=== PATIENT | female | born 1965 | race Caucasian/White ===

== ENCOUNTER 2020-11-25 10:50 | Emergency (ER) | payer OTHER, SELFPAY ==
--- NOTE | ~2020-11-25 | XR_ITS ---
EXAMINATION: XR knee RT min 4V DATE: 11/25/2020 11:18 INDICATION: Right knee injury. TECHNIQUE: 4 views of right knee were obtained. COMPARISON: None. FINDINGS: Bone alignment is normal. No acute fracture. There is mild tricompartmental osteoarthritis. There is chondrocalcinosis of the menisci. There are surgical changes in distal femur and proximal t ibia from anterior cruciate ligament reconstruction. There is a large knee joint effusion. IMPRESSION: 1. Mild right knee osteoarthritis. 2. Large right knee joint effusion. Reviewed, dictated and finalized at location A.
--- NOTE | 2020-11-25 11:00 | ED.LOWEXIN ---
HPI - Extremity Injury (Lower) General Chief Complaint: Extremity Injury, Lower Stated Complaint: right knee pain Time Seen by Provider: 11/25/20 11:03 Source: patient and family Mode of arrival: ambulatory Limitations: no limitations History of Present Illness HPI Narrative: 55-year-old woman comes in today complaining of right knee pain and swelling and limited weight-bearing that started last night after she twisted her knee getting out of a van. She states that the swelling started immediately. She denies any numbness or tingling. She has had multiple ligament surgeries on that knee. complaint: knee injury Injury: Right: knee Type of Injury: other ( Twisted) Place: street/outdoors Severity: severe Relieving factors: nothing Exacerbating factors: weight bearing, movement and palpation Associated symptoms: snap/pop sensation, swelling and able to partially bear weight Other symptoms: none Treatments prior to arrival: cold therapy and NSAIDS Related Data Allergies Allergy/AdvReac Type Severity Reaction Status Date / Time No Known Allergies Allergy Mild Verified 11/05/20 11:06 Review of Systems Review of Systems: All systems reviewed & are unremarkable except as noted in HPI and below Constitutional: Constitutional: Denies chills and Denies fever(s) Respiratory: Respiratory: Denies cough and Denies dyspnea Gastrointestinal: Gastrointestinal: Denies nausea and Denies vomiting Musculoskeletal: Musculoskeletal: Reports as per HPI, Denies back pain, Reports arthralgias and Reports joint swelling Integumentary/Breasts: Skin/Breast: Denies pruritus and Denies rash Neurologic: Denies vertigo, Denies dizziness, Denies syncope, Denies focal weakness and Denies numbness PMF Past Medical History Medical History (Updated 11/25/20 @ 11:34 by Marco A Cohen MD) Cigarette smoker two packs a day or less Depression DEVI (generalized anxiety disorder) GERD (gastroesophageal reflux disease) PTSD (post-traumatic stress disorder) Surgical History Surgical History History of back surgery History of hysterectomy History of knee surgery Social History Social History Smoking packs per day: 1 Smoking cigarettes per day: 20.0 Years smoked: 40 Smoking pack-years: 40.00 Smoking status: Current every day smoker Alcohol intake: current Substance use: never Additional living arrangements comments: . Lives with . Lost her daughter to drug overdose. 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 Exam Const: General: alert Orientation/consciousness: patient oriented x3 Other: moderate acute distress. Resp: Effort & Inspection: normal respiratory effort Auscultation: wheezes ( Bilateral late expiratory wheezes at the bases.) Cardio: Rate: regular rate Rhythm: regular rhythm Heart sounds: no murmurs Skin: General skin exam: normal color, no jaundice and no pallor Rashes: no rashes Neuro: General: patient oriented x3, moves all extremities, no focal motor deficits and CN's II-XI intact bilaterally Speech: normal speech Other: Antalgic gait Extrem: General: normal to inspection and no clubbing, cyanosis or edema Psych: Appearance: grossly normal and well kempt Mental Status: mental status grossly normal Affect: normal affect Attitude: cooperative Thought content: Yes Normal thought content present Discharge Plan Discharge Clinical Impression: Sprain of right knee Qualifiers: Encounter type: initial encounter Involved ligament of knee: unspecified ligament Qualified Code(s): S83.91XA - Sprain of unspecified site of right knee, initial encounter Patient Disposition: Home, Self-Care Condition: Stable Instructions: Knee Sprain (ED) Additional Instructions: Rest, ice, elevation and ibuprofen. Follow-up with your primary ca
[2020-11-25 11:07] VITALS: BP 144/90; PULSE 87; RESP 18; TEMP 36.7; O2SAT 97
[2020-11-25] MEDS: HYDROcodone/acetaminophen (*CRX) 5-325 MG TABLET 1 TAB PO (11:15)
== END 2020-11-25 11:48 | disposition home or self-care (01) ==
PROVIDERS: Emergency Provider Emergency Medicine; PCP Family Medicine
DX: S83.91XA Sprain of unspecified site of right knee, initial encounter (principal); X50.1XXA Overexertion from prolonged static or awkward postures, initial encounter
CPT/HCPCS: 73564; 99283; A9270; L1830

== ENCOUNTER 2021-03-21 13:04 | Outpatient (CLI) | payer OTHER, SELFPAY ==
[2021-03-21 15:09] LABS: SARS-CoV-2 RNA PCR Negative (Negative)
== END 2021-03-21 13:05 | disposition home or self-care (01) ==
PROVIDERS: PCP Family Medicine; Visit Provider Family Medicine
DX: Z20.822 Contact with and (suspected) exposure to COVID-19 (principal)
CPT/HCPCS: C9803; U0003; U0005

== ENCOUNTER 2021-03-28 11:13 | Outpatient (CLI) | payer OTHER, SELFPAY ==
[2021-03-28 11:24] LABS: Basophils Absolute Auto 0.13 K/mm3 (0.00-0.10); Basophils Percent Auto 1.4 % (0.0-1.0); Eosinophils Absolute Auto 0.27 K/mm3 (0.02-0.50); Eosinophils Percent Auto 2.9 % (1.0-6.0); Hematocrit 43.4 % (35.0-49.0); Hemoglobin 14.5 g/dL (12.0-15.0); Immature Granulocyte Absolute 0.03 K/mm3 (0.00-0.00); Immature Granulocyte Percent A 0.3 % (0.0-0.0); Mean Corpuscular HGB Conc 33.4 g/dL (32.0-36.0); Mean Corpuscular Hemoglobin 31.7 pg (27.0-31.0); Mean Platelet Volume 8.8 fl (9.2-11.8); Monocytes Absolute Auto 0.58 K/mm3 (0.10-0.90); Monocytes Percent Auto 6.2 % (2.0-11.0); Neutrophils Absolute Auto 5.6 K/mm3 (1.7-7.2); Neutrophils Percent Auto 60.2 % (50.0-70.0); Platelet Count Result 349 K/mm3 (150-420); Red Blood Count 4.57 M/mm3 (4.20-5.40); Red Cell Distribution Width 14.2 % (11.6-14.4); White Blood Count 9.3 K/mm3 (4.8-10.8)
[2021-03-28 12:36] LABS: Erythrocyte Sedimentation Rate 14 mm/hr (0-20)
[2021-03-28 12:48] LABS: Rheumatoid Factor Screen Negative (Negative)
[2021-03-28 12:56] LABS: Alanine Aminotransferase 18 U/L (14-59); Albumin Level 4.1 g/dL (3.4-5.0); Alkaline Phosphatase 96 U/L (46-116); Anion Gap 12 mmol/L (8-16); Aspartate Amino Transferase 10 U/L (15-37); Bilirubin,Total 0.5 mg/dL (0.00-1.00); Blood Urea Nitrogen 13 mg/dL (7-18); Calcium 9.5 mg/dL (8.5-10.1); Carbon Dioxide 25 mmol/L (21-32); Chloride 106 mmol/L (98-108); Estimated Glomerular Filt Rate > 60; Ferritin 41 ng/mL (8-252); Glucose 92 mg/dL (70-99); Iron 92 ug/dL (50-170); Osmolality Calculated 296 mOsm/kg (285-295); Percent Iron Saturation 29 % (12-57); Potassium 4.1 mmol/L (3.5-5.1); Sodium 143 mmol/L (136-145); Total Protein 7.5 g/dL (6.4-8.2); Uric Acid 3.2 mg/dL (2.6-6.0)
[2021-03-28 13:04] LABS: CRP < 0.2 mg/dL (0.0-0.9)
[2021-03-31 11:37] LABS: Anti Cyclic Citrullinated Pept <16 Units (<20)
== END 2021-03-28 11:14 | disposition home or self-care (01) ==
LOC: CHSLAB 11:15
PROVIDERS: PCP Family Medicine; Visit Provider Family Medicine
DX: M25.50 Pain in unspecified joint (principal); I10 Essential (primary) hypertension
CPT/HCPCS: 36415; 80053; 82728; 83540; 83550; 84550; 85025; 85652; 86038; 86039; 86140; 86200; 86430

== ENCOUNTER 2021-07-30 12:00 | Outpatient (CLI) | payer OTHER, SELFPAY ==
--- NOTE | ~2021-07-30 | MM_ITS ---
EXAMINATION: MM screening kareem BI w camilo HISTORY: Screening TECHNIQUE: Craniocaudal and mediolateral oblique 3-D tomosynthesis images were obtained and synthetic 2-D images were generated. CAD analysis was submitted and interpreted. COMPARISON: Comparison to multiple prior studies sequentially, with oldest reviewed study dated 02/15. BREAST PARENCHYMAL COMPOSITION: There are scattered areas of fibroglandular density. FINDINGS: There is no evidence of suspicious mass, calcification, or architectural distortion to sugg est malignancy in either breast. There has been no suspicious interval change. IMPRESSION: 1. No mammographic evidence of malignancy. 2. Recommend routine screening mammography in one year. BI-RADS Category 1: Negative Reviewed, dictated and finalized at location A. DIRECTOR
== END 2021-07-30 12:01 | disposition home or self-care (01) ==
LOC: CHSIMG 12:01
PROVIDERS: PCP Family Medicine; Visit Provider Nurse Practitioner Family
DX: Z12.31 Encounter for screening mammogram for malignant neoplasm of breast (principal)
CPT/HCPCS: 77063; 77067

== ENCOUNTER 2024-06-17 10:06 | Outpatient (CLI) | payer OTHER, SELFPAY ==
--- NOTE | ~2024-06-17 | XR_ITS ---
EXAMINATION: XR foot LT min 3V DATE: 06/17/2024 10:19 INDICATION: Left foot injury. TECHNIQUE: 4 views of left foot were obtained. COMPARISON: None. FINDINGS: Alignment is normal. No fracture. There is mild osteoarthritis of talonavicular joint, firs t metatarsophalangeal joint, and first interphalangeal joint. There is an enthesophyte of posterior a spect of calcaneal tuberosity. IMPRESSION: 1. Mild polyarticular osteoarthritis. Reviewed, dictated and finalized at location A. MILL OPERATOR
== END 2024-06-17 10:07 | disposition home or self-care (01) ==
LOC: CHSIMG 10:08
PROVIDERS: PCP Family Medicine; Visit Provider Family Medicine
DX: S99.929A Unspecified injury of unspecified foot, initial encounter (principal); M19.072 Primary osteoarthritis, left ankle and foot
CPT/HCPCS: 73630

== ENCOUNTER 2025-03-22 12:11 | Outpatient (CLI) | payer OTHER, SELFPAY ==
--- NOTE | ~2025-03-22 | XR_ITS ---
EXAMINATION: XR chest 2V 03/22/2025 12:26 INDICATION: Chest pain PROCEDURE: 2 view chest COMPARISON: 07/11/2014 FINDINGS: The lungs are clear. The cardiomediastinal silhouette is within normal limits. There are no pleural effusions. There is no pneumothorax suspected. The lungs are hyperinflated which is consistent with, but not diagnostic of chronic obstructive pulmonary disease. IMPRESSION: 1: NO ACUTE CARDIOPULMONARY DISEASE. Reviewed, dictated and finalized at location A.
== END 2025-03-22 12:12 | disposition home or self-care (01) ==
PROVIDERS: PCP Family Medicine; Visit Provider Family Medicine
DX: M25.50 Pain in unspecified joint (principal)
CPT/HCPCS: 71046

== ENCOUNTER 2025-06-12 13:49 | Outpatient (CLI) | payer OTHER, SELFPAY ==
--- NOTE | ~2025-06-12 | XR_ITS ---
Examination: XR chest 2V Clinical History: R05.9 - Cough, unspecified Comparison: 03/22/2025 Technique: PA and Lateral Findings: Cardiomediastinal silhouette normal size and configuration. Lungs clear. Hyperinflation. No acute bony abnormality. IMPRESSION: 1. No acute cardiopulmonary findings. Reviewed, dictated and finalized at location R. UNITY SERVICE MANAGER
--- NOTE | 2025-06-12 14:04 | ECG_ITS ---
Test Date: 2025-06-12 14:21:59 Measurements Intervals [place] Rate: 96 P: 84 DC: 137 QRS: 86 QRSD: 90 T: 65 QT: 338 QTc: 427 Interpretive Statements SINUS RHYTHM No previous ECG available for comparison Electronically Signed On 06-13-2025 18:09:27 BUTTERMAKER by Merritt Feliz M.D.
[2025-06-12 14:06] LABS: Hematocrit 42.9 % (35.0-49.0); Hemoglobin 13.9 g/dL (12.0-15.0); Immature Granulocyte Percent A 0.4 % (0.0-0.0); Lymphocytes Absolute Auto 1.68 K/mm3 (1.10-4.50); Mean Corpuscular HGB Conc 32.4 g/dL (32-36); Mean Corpuscular Hemoglobin 31.3 pg (27.0-31.0); Mean Corpuscular Volume 96.6 fL (78.0-102.0); Nucleated Red Blood Cells Absolute Auto 0.00 K/mm3 (0.00-0.00); Nucleated Red Blood Cells Perc 0.0 % (0-0.0); Platelet Count Result 365 K/mm3 (150-420); Red Blood Count 4.44 M/mm3 (4.20-5.40); White Blood Count 10.8 K/mm3 (4.8-10.8)
[2025-06-12 14:07] LABS: Add Urine Microscopic? YES; Appearance Urine Clear (Clear); Glucose Urine UA Negative (Negative); Leukocyte Esterase Ur Negative LEU/UL (Negative); Nitrate Urine Negative (Negative); Specific Grav Ur 1.020 (1.010-1.020)
[2025-06-12 14:28] LABS: Iron 43 ug/dL (37-170)
[2025-06-12 14:29] LABS: Alanine Aminotransferase 23 U/L (6-35); Albumin Level 4.3 g/dL (3.5-5.1); Alkaline Phosphatase 86 U/L (38-126); Anion Gap 8 mmol/L (4-12); Aspartate Amino Transferase 21 U/L (14-36); Bilirubin,Total 1.1 mg/dL (0.2-1.3); Blood Urea Nitrogen 17 mg/dL (7-17); Calcium 9.9 mg/dL (8.4-10.2); Carbon Dioxide 26 mmol/L (22-30); Chloride 110 mmol/L (98-107); Estimated Glomerular Filt Rate > 60; Glucose 96 mg/dL (65-110); Magnesium 2.1 mg/dL (1.6-2.3); Osmolality Calculated 299 mOsm/kg (285-295); Potassium 4.6 mmol/L (3.4-5.0); Sodium 144 mmol/L (137-145); Total Protein 6.9 g/dL (6.3-8.2)
[2025-06-12 15:44] LABS: Free T4 Free Thyroxine 1.56 ng/dL (0.78-2.19)
[2025-06-12 15:57] LABS: Thyroid Stimulating Hormone 0.132 uIU/mL (0.465-4.680)
[2025-06-12 16:40] LABS: Percent Iron Saturation 14 % (20-50)
[2025-06-13 11:07] LABS: Total Triiodothyronine (T3) 1.10 NG/ML (0.97-1.69)
== END 2025-06-12 13:50 | disposition home or self-care (01) ==
LOC: CHSLAB 13:50
PROVIDERS: PCP Nurse Practitioner Family; Visit Provider Nurse Practitioner Family
DX: R63.4 Abnormal weight loss (principal); Z79.899 Other long term (current) drug therapy; Z87.898 Personal history of other specified conditions; R05.9 Cough, unspecified; E55.9 Vitamin D deficiency, unspecified
CPT/HCPCS: 36415; 71046; 80053; 81001; 82306; 83540; 83550; 83735; 84439; 84443; 84480; 85025; 93005

== ENCOUNTER 2025-06-19 15:13 | Outpatient (CLI) | payer OTHER, SELFPAY ==
[2025-06-19 15:30] LABS: Add Urine Microscopic? YES; Appearance Urine Clear (Clear); Glucose Urine UA Negative (Negative); Leukocyte Esterase Ur Negative LEU/UL (Negative); Nitrate Urine Negative (Negative); Specific Grav Ur 1.020 (1.010-1.020)
[2025-06-19 16:00] LABS: Free T4 Free Thyroxine 1.59 ng/dL (0.78-2.19)
[2025-06-19 16:14] LABS: Thyroid Stimulating Hormone 1.280 uIU/mL (0.465-4.680)
== END 2025-06-19 15:14 | disposition home or self-care (01) ==
PROVIDERS: PCP Nurse Practitioner Family; Visit Provider Nurse Practitioner Family
DX: R31.9 Hematuria, unspecified (principal); R79.89 Other specified abnormal findings of blood chemistry
CPT/HCPCS: 36415; 81001; 84439; 84443; 84445; 84480; 86376; 86800

== ENCOUNTER 2025-06-23 10:58 | Outpatient (CLI) | payer OTHER, SELFPAY ==
--- NOTE | 2025-07-17 14:16 | P.PCNHOL_ITS ---
Holter/Event Monitor Holter/Event Monitor Date of procedure: 06/23/25 Holter/Event Procedure: Event Monitor Indications: Tachycardia Conclusion: 1. 10 days event monitor on 06/23/25. 2. Predominant rhythm is sinus rhythm. HR range 55-211 bpm; average HR 91 bpm. 3. There are rare premature supraventricular complexes, rare supraventricular couplets, and rare supraventricular triplets. There are 30 episodes of supra ventricular tachycardia with fastest at 211 bpm and longest lasting 18 beats. 4. There are rare premature ventricular complexes, rare ventricular couplets, rare ventricular triplets, longest ventricular trigeminy was 16.5 seconds. No ventricular tachycardia. 5. No significant pauses greater than 3 seconds. 6. No symptoms available for correlation.
== END 2025-06-23 10:59 | disposition home or self-care (01) ==
LOC: CHSCARD 11:00
PROVIDERS: PCP Family Medicine; Visit Provider Nurse Practitioner Family
DX: R00.0 Tachycardia, unspecified (principal)
CPT/HCPCS: 93246

== ENCOUNTER 2025-07-25 12:25 | Outpatient (CLI) | payer OTHER, SELFPAY ==
--- NOTE | ~2025-07-25 | US_ITS ---
US thyroid INDICATION: Dysphonia TECHNIQUE: Real-time sonographic images of the thyroid gland were obtained. COMPARISON: No prior studies for comparison. FINDINGS: The right thyroid lobe measures 3.7 x 1.3 x 1.8 cm. The left thyroid lobe measures 4 x 1.6 x 1.7 cm. Thyroid gland is somewhat heterogeneous. There is a focal calcification in the right thyroid lobe measuring 2 mm. No discrete suspicious mass in the right lobe. In the left lobe there is a solid hypoechoic wider than tall smoothly marginated mass without echogenic foci measuring 5 mm, likely benign. Isthmus measures 4 mm.. Normal vascular flow is present. IMPRESSION: 1. Benign left thyroid nodule measuring 5 mm, TR 4. No follow-up is required. Reviewed, dictated and finalized at location O. ETING PROGRAM COORDINATOR
== END 2025-07-25 12:26 | disposition home or self-care (01) ==
LOC: CHSIMG 12:26
PROVIDERS: PCP Nurse Practitioner Family; Visit Provider Nurse Practitioner Family
DX: R49.0 Dysphonia (principal); R63.4 Abnormal weight loss; E04.1 Nontoxic single thyroid nodule
CPT/HCPCS: 76536